=== PATIENT | male | born 1955 | race Caucasian/White ===

== ENCOUNTER 2024-06-05 08:44 | Outpatient (RCR) | payer MEDICARE, BC, SELFPAY ==
[2024-06-05 09:32] LABS: Creatinine* 1.1 mg/dL (0.5-1.5); Estimated Glomerular Filt Rate 73 ml/min
--- NOTE | 2024-06-21 08:30 | ONC.NURNOTE ---
Dx: Prostate cancer
== END 2024-12-02 23:59 | disposition home or self-care (01) ==
LOC: CCIC 08:44
PROVIDERS: PCP Family Medicine; Visit Provider Internal Medicine
DX: C61 Malignant neoplasm of prostate (principal)
CPT/HCPCS: 36415; 82565; 99211